=== PATIENT | male | born 1980 | race Caucasian/White ===

== ENCOUNTER 2023-01-14 16:20 | Emergency (ER) | payer SELFPAY ==
[2023-01-14 16:30] VITALS: BP 164/93; PULSE 76; RESP 20; TEMP 98.6; BMI 26.8
[2023-01-14] MEDS ORDERED: IBUPROFEN 600 MG TABLET (FP) PO ONE ×2 (17:15→17:17)
== END 2023-01-14 18:52 | disposition home or self-care (01) ==
LOC: JERFT 16:20
DX: S89.91XA Unspecified injury of right lower leg, initial encounter (principal); M25.561 Pain in right knee; X58.XXXA Exposure to other specified factors, initial encounter; Y93.9 Activity, unspecified; Y92.9 Unspecified place or not applicable
CPT/HCPCS: 73562-TC-RT-FY; 99283-25